=== PATIENT | female | born 1995 | race Caucasian/White ===

== ENCOUNTER 2018-07-11 15:53 | Emergency (ER) | payer SELFPAY ==
--- NOTE | 2018-07-11 16:29 | UC ---
Dizzy HPI HPI Summary: 23-year-old female comes in with a chief complaint of sudden onset of lightheadedness sweating and chest tightness with palpitations. This started a little more than an hour ago. Patient was sitting and suddenly felt lightheaded. She then felt sweaty. Then she felt her chest being tight and felt her heart racing. Earlier today she has not felt like eating so she had less food. Otherwise she's been feeling well. No drugs today. She does take metformin and cabergoline for PCOS and pituitary adenoma. She still not feeling well although she has improved with time. - History Of Current Complaint Chief Complaint: UCDizziness Stated Complaint: DIZZINESS Time Seen by Provider: 07/11/18 16:02 Hx Last Menstrual Period: 11/24/15 Pain Intensity: 0 - Allergies/Home Medications Allergies/Adverse Reactions: Allergies Allergy/AdvReac Type Severity Reaction Status Date / Time No Known Allergies Allergy Verified 07/11/18 16:14 Home Medications: Home Medications Cabergoline 0.5 tab PO WEEKLY 07/11/18 [History Confirmed 07/11/18] metFORMIN* [Glucophage 500 MG TAB *] 500 mg PO BID 07/11/18 [History Confirmed 07/11/18] PMH/Surg Hx/FS Hx/Imm Hx Previously Healthy: Yes - PCOS,PITUITARY ADENOMA Other History Of: Negative For: Anticoagulant Therapy - Surgical History Surgical History: None - Family History Known Family History: Negative: Hypertension, Blood Disorder - Social History Alcohol Use: Weekly Alcohol Amount: 4 out of 7 days a week/5 drinks Substance Use Type: Cocaine, Marijuana Substance Use Comment - Amount & Last Used: cocaine 3X a week, marijuana few times a month Smoking Status (MU): Never Smoked Tobacco Review of Systems All Other Systems Reviewed And Are Negative: Yes Constitutional: Positive: Other - DIZZINESS Skin: Positive: Negative Eyes: Positive: Negative ENT: Positive: Negative Respiratory: Positive: Negative Cardiovascular: Positive: Other - SEE HPI Gastrointestinal: Positive: Negative Motor: Positive: Negative Neurovascular: Positive: Negative Musculoskeletal: Positive: Negative Neurological: Positive: Negative Psychological: Positive: Anxious Is Patient Immunocompromised?: No Physical Exam Triage Information Reviewed: Yes Appearance: No Pain Distress, Well-Nourished, Other: - ANXIOUS Vital Signs: Initial Vital Signs Temp 97.6 F 07/11/18 15:59 Pulse 73 07/11/18 15:59 Resp 16 07/11/18 15:59 BP 142/74 07/11/18 15:59 Pulse Ox 100 07/11/18 15:59 Vital Signs Reviewed: Yes Eye Exam: Normal Eyes: Positive: Conjunctiva Clear Neck exam: Normal Neck: Positive: Supple Respiratory: Positive: Lungs clear, Normal breath sounds, No respiratory distress Cardiovascular: Positive: RRR Musculoskeletal Exam: Normal Musculoskeletal: Positive: Strength Intact, ROM Intact Neurological Exam: Normal Neurological: Positive: Alert, Muscle Tone Normal Psychological Exam: Normal Psychological: Positive: Age Appropriate Behavior Skin Exam: Normal Diagnostics - EKG Cardiac Rate: Bradycardia - AT 1611 Cardiac Rhythm: Sinus: Normal - 58 BPM Ectopy: None ST Segment: Normal Dizzy Course/Dx - Course Course Of Treatment: Patient's fingerstick blood sugar was 103. Her heart rate was 58 on EKG. EKG was normal. Orthostatic vital signs did show an increase in heart rate going from laying to standing however the patient is asymptomatic. We will discussing all this and the patient brought up she feels like she is having a panic attack. She had similar episodes a couple months ago. During that time she was evaluated by a manager training who patient relates did not find anything of concern. We discussed that we can treat the anxiety however today here in clinic we have not completely ruled out a cardiac cause. I discussed with her if she wanted to try some hydroxyzine for the anxiety and she does. We also discussed that if her symptoms do not improve or she worsens she is to go to the emergency department. - Differential Dx/Diagnosis Provider Diagnosis: Dizziness, Chest pain, Anxiety Discharge - Sign-Out/Discharge Documenting (check all that apply): Patient Departure All imaging exams completed and their final reports reviewed: No Studies - Discharge Plan Condition: Stable Disposition: HOME Prescriptions: hydrOXYzine HCl [Hydroxyzine HCl] 50 mg PO QID PRN #10 tablet PRN Reason: Anxiety Patient Education Materials: Chest Pain (ED), Dizziness (ED), Anxiety (ED) [facility] [[facility]] [facility] [place] [facility] [Outside] Additional Instructions: FOLLOW UP WITH YOUR PRIMARY CARE DOCTOR. GO TO THE EMERGENCY DEPARTMENT IF YOUR CONDITION WORSENS; CHEST PAIN, SHORTNESS OF BREATH, YOU FEEL LIKE PASSING OUT OR ANY QUESTIONS OR CONCERNS. - Billing Disposition and Condition Condition: STABLE Disposition: Home
[2018-07-11 16:38] VITALS: BP 126/73
[2018-07-11] MEDS ORDERED: hydrOXYzine HCL TAB* 25 MG PO ONE (16:46)
== END 2018-07-11 17:04 | disposition home or self-care (01) ==
LOC: UCCORT 15:53
DX: R42 Dizziness and giddiness (principal); R00.2 Palpitations; R07.9 Chest pain, unspecified; F41.9 Anxiety disorder, unspecified
CPT/HCPCS: 93005; 99212; A9270-GY; G0463